=== PATIENT | male | born 2000 | race Caucasian/White ===

== ENCOUNTER 2024-03-14 22:22 | Emergency (ER) | payer OTHER ==
[2024-03-14] MEDS ORDERED: NA CHLORIDE 0.9% 1,000 ML ONE (23:24)
[2024-03-14] MEDS ORDERED: KETOROLAC 30 MG/ML INJ ONE (23:24)
[2024-03-14] MEDS ORDERED: ONDANSETRON 4 MG/2 ML VIAL ONE (23:24)
[2024-03-14] MEDS ORDERED: FAMOTIDINE 20 MG/2 ML VIAL IV ONE (23:24)
[2024-03-14 23:52] LABS: Absolute Eosinophils 0.1 K/uL (0-0.5); Absolute Lymphocytes (CBC) 1.4 K/uL (0.7-4.9); Absolute Monocytes 1.1 K/uL (0.1-1.3); Absolute Neutrophil 3.4 K/uL (1.8-8.0); Basophils % 0.3 % (0-1.3); Eosinophils % 0.9 % (0-4.4); Hematocrit 45.4 % (39.6-49.0); Hemoglobin 15.5 g/dL (13.6-17.9); Lymphocytes % 24.2 % (15.3-44.8); MCH 32.2 pg (27.0-35.0); MCHC 34.1 g/dL (32.0-36.0); MCV 94.3 fL (80-100); MPV 9.3 fL (7.6-11.3); Neutrophils % 56.6 % (41.7-73.7); Nucleated Red Blood Cells % 0.1 % (0-0); Platelets 142 thou/uL (152-406); RBC Red Blood Cell Count 4.82 M/uL (4.33-5.43); Red Cell Distribution Width 13.1 % (12.1-15.2)
[2024-03-15 00:10] LABS: Albumin 3.6 g/dL (3.4-5.0); Albumin/Globulin Ratio 0.9 (1.1-1.8); Anion Gap 9.6 mEq/L (5.0-15.0); Bilirubin Total 0.5 mg/dL (0.2-1.0); Globulin 4.1 g/dL (2.3-3.5); Potassium 3.6 mEq/L (3.5-5.1); Protein, Total 7.7 g/dL (6.4-8.2)
[2024-03-15 00:33] LABS: SARS-CoV-2 Antigen CONTROL BLUE LINE VIS/BG OK; SARS-CoV-2 Antigen Rapid Res Negative (Negative)
--- NOTE | 2024-03-15 00:38 | ER ---
Nurse's Notes [facility] Name: Chico Francois Age: 23 yrs Sex: Male : 2000 Arrival Date: 03/14/2024 Time: 22:22 Bed 8 Private MD: Diagnosis: Viral infection, unspecified Presentation: 03/14 22:52 Chief complaint: Patient states: N/V x4 days. Epigastric pain, N/D today. PT took kb3 Phenergan and Protonix from mom today \T\ 1520 and was able to keep toast down. Coronavirus screen: Vaccine status: Patient reports receiving the 2nd dose of the covid vaccine. Client denies travel out of the [place] in the last 14 days. Ebola Screen: Patient negative for fever greater than or equal to 101.5 degrees Fahrenheit, and additional compatible Ebola Virus Disease symptoms Patient denies exposure to infectious person. Patient denies travel to an Ebola-affected area in the 21 days before illness onset. Initial Sepsis Screen: Does the patient meet any 2 criteria? No. Patient's initial sepsis screen is negative. Does the patient have a suspected source of infection? No. Patient's initial sepsis screen is negative. Risk Assessment: Do you want to hurt yourself or someone else? Patient reports no desire to harm self or others. Onset of symptoms was March 10, 2024. 22:52 Method Of Arrival: Ambulatory 3 22:52 Acuity: RODNEY 3 kb3 Triage Assessment: 22:53 General: Appears in no apparent distress. Behavior is calm, cooperative. Pain: kb3 Complains of pain in epigastric area Pain radiates to xiphoid area and mid-sternal area Pain currently is 7 out of 10 on a pain scale. Quality of pain is described as burning, Pain began 1 day ago. Is continuous. GI: Reports upper abdominal pain, diarrhea, nausea, vomiting. Historical: - Allergies: 22:53 No Known Allergies; kb3 - Home Meds: 22:53 None [Active]; kb3 - PMHx: 22:53 None; kb3 - PSHx: 22:53 None; kb3 - Immunization history:: Adult Immunizations up to date, Client reports receiving the 2nd dose of the Covid vaccine, Last tetanus immunization: up to date. - Infectious Disease History:: Denies. - Social history:: Smoking status: Reported history of juuling and/or vaping. Screenin/11 00:49 [facility] ED Fall Risk Assessment (Adult) History of falling in the last 3 months, bm8 including since admission No falls in past 3 months (0 pts) Confusion or Disorientation No (0 pts) Intoxicated or Sedated No (0 pts) Impaired Gait No (0 pts) Mobility Assist Device Used No (0 pt) Altered Elimination No (0 pt) Score/Fall Risk Level 0 - 2 = Low Risk Oriented to surroundings, Maintained a safe environment, Educated pt \T\ family on fall prevention, incl call for assistance when getting out of bed, Assessed \T\ reinforced patient's understanding of fall precautions, Hourly rounding (assess needs \T\ fall precautionary measures) done, Used ambulatory aids as needed (educated on \T\ assisted with), Used gait belt as appropriate. Abuse screen: Denies threats or abuse. Nutritional screening: No deficits noted. Tuberculosis screening: No symptoms or risk factors identified. Assessment: 00:49 Reassessment: Patient appears in no apparent distress at this time. Patient and/or bm8 family updated on plan of care and expected duration. Pain level reassessed. Patient is alert, oriented x 3, equal unlabored respirations, skin warm/dry/pink. Patient states feeling better. Patient states symptoms have improved. Pain: Complains of pain in chest and abdomen Pain currently is 3 out of 10 on a pain scale. Quality of pain is described as burning. Neuro: Level of Consciousness is awake, alert, obeys commands, Oriented to person, place, time, situation, Appropriate for age. Cardiovascular: Reports chest pain, Capillary refill < 3 seconds Patient's skin is warm and dry. Respiratory: Airway is patent Respiratory effort is even, unlabored, Respiratory pattern is regular, symmetrical. GI: Abdomen is flat, non-distended, Bowel sounds present X 4 quads. Abd is soft and non tender Reports tolerance of fluids. : No signs and/or symptoms were reported regarding the genitourinary system. EENT: No signs and/or symptoms were reported regarding the EENT system. Derm: No signs and/or symptoms reported regarding the dermatologic system. Musculoskeletal: No signs and/or symptoms reported regarding the musculoskeletal system. Vital Signs: 03/14 22:52 BP 119 / 79; Pulse 85; Resp 18; Temp 99.6; Pulse Ox 99% ; Weight 70.76 kg; Height 5 ft. kb3 11 in. ; Pain 02/11; 03/15 00:49 BP 119 / 69; Pulse 79; Resp 18; Temp 99.5; Pulse Ox 100% ; Pain 3/10; bm8 03/14 22:52 Body Mass Index 21.76 (70.76 kg, 180.34 cm) kb3 03/14 22:52 Pain Scale: Adult kb3 03/15 00:49 Pain Scale: Adult bm8 Иван Coma Score: 00:49 Eye Response: spontaneous(4). Motor Response: obeys commands(6). Verbal Response: bm8 oriented(5). Total: 15. ED Course: 03/14 22:25 Patient arrived in ED. jj6 22:53 Triage completed. kb3 22:53 Arm band placed on right wrist. Patient placed in an exam room, on a stretcher. kb3 23:05 [facility]C [facility]. kb 23:05 Fam Bianchi MD is Attending Physician. kb 23:21 SARS-COV-2 Antigen Rapid Sent. me1 23:21 CBC with Diff Sent. me1 23:21 CMP Sent. me1 23:21 Lipase Sent. me1 23:21 Initial lab(s) drawn, by me, sent to lab. COVID swab sent to lab. Inserted saline lock: me1 22 gauge in right antecubital area, using aseptic technique. 23:44 Evens Pryor, RN is Primary Nurse. bm8 03/15 00:49 Patient has correct armband on for positive identification. Bed in low position. Call bm8 light in reach. Side rails up X 1. Adult w/ patient. Provided Education on: post er care. Client placed on continuous cardiac and pulse oximetry monitoring. NIBP monitoring applied. Pulse ox on. NIBP on. Door closed. Noise minimized. Warm blanket given. Verbal reassurance given. Head of bed elevated. 00:49 No provider procedures requiring assistance completed. IV discontinued, intact, bm8 bleeding controlled, No redness/swelling at site. Pressure dressing applied. Administered Medications: 03/14 23:31 Drug: NS 0.9% IV 1000 ml IV at 1 bolus Per protocol; 1000 mL bolus Route: IV; Rate: 1 me1 bolus; Site: right antecubital; 03/15 00:49 Follow up: Response: No adverse reaction; IV Status: Completed infusion; IV Intake: bm8 1000ml 03/14 23:31 Drug: Famotidine IVP 20 mg IVP once; dilute with 10 mL 0.9% NaCl; give over 2 minutes me1 Route: IVP; Site: right antecubital; 23:52 Follow up: Response: No adverse reaction bm8 23:31 Drug: TORadol - Ketorolac IVP 15 mg IVP once Route: IVP; Site: right antecubital; me1 23:52 Follow up: Response: No adverse reaction bm8 23:31 Drug: Ondansetron IVP 4 mg IVP once; over 2 minutes Route: IVP; Site: right antecubital;me1 23:52 Follow up: Response: No adverse reaction bm8 Medication: 03/15 00:49 VIS not applicable for this client. bm8 Intake: 00:49 IV: 1000ml; Total: 1000ml. bm8 Outcome: 00:37 Discharge ordered by . kb 00:49 Discharged to home ambulatory, with family, bm8 00:49 Condition: stable 00:49 Discharge instructions given to patient, Instructed on discharge instructions, follow up and referral plans. medication usage, safety practices, Demonstrated understanding of instructions, follow-up care, medications, Prescriptions given X 1, 00:53 Patient left the ED. bm8 Signatures: Naomi Jamil, SURGICAL SUPERVISOR-C SURGICAL SUPERVISOR-CkFadia Mast [id number] Letty Barcenas RN RN kb3 Myrtle Carlson RN RN me1 Evens Pryor RN RN bm8
--- NOTE | 2024-03-15 00:38 | EDPHYS ---
Physician Documentation [facility] Name: Chico Francois Age: 23 yrs Sex: Male : 2000 Arrival Date: 03/14/2024 Time: 22:22 Bed 8 Private MD: ED Physician Fam Bianchi HPI: 03/15 00:33 This 23 yrs old Male presents to ER via Ambulatory with complaints of Abdominal Pain, kb Nausea/Vomiting. 00:33 Pt is a 23 year old male who presents for nausea, vomiting, diarrhea, cough, congestion kb and sore throat that started 4 days ago. Denies fever. No aggravating or alleviating factors. States he did take phenergan today and was able to tolerate toast and fluids. . Historical: - Allergies: 03/14 22:53 No Known Allergies; kb3 - Home Meds: 22:53 None [Active]; kb3 - PMHx: 22:53 None; kb3 - PSHx: 22:53 None; kb3 - Immunization history:: Adult Immunizations up to date, Client reports receiving the 2nd dose of the Covid vaccine, Last tetanus immunization: up to date. - Infectious Disease History:: Denies. - Social history:: Smoking status: Reported history of juuling and/or vaping. ROS: 03/15 00:32 Constitutional: As per HPI kb Exam: 00:32 Constitutional: This is a well developed, well nourished patient who is awake, alert, kb and in no acute distress. Head/Face: Normocephalic, atraumatic. ENT: Moist Mucous membranes Cardiovascular: Regular rate Respiratory: Respirations even and unlabored. No increased work of breathing. Talking in full sentences Abdomen/GI: Soft, non-tender. No distention Skin: Warm, dry with normal turgor. Normal color. MS/ Extremity: Pulses equal, no cyanosis. Neurovascular intact. Full, normal range of motion. Neuro: Awake and alert, GCS 15, oriented to person, place, time, and situation. Moves all extremities. Normal gait. Vital Signs: 03/14 22:52 BP 119 / 79; Pulse 85; Resp 18; Temp 99.6; Pulse Ox 99% ; Weight 70.76 kg; Height 5 ft. kb3 11 in. ; Pain /; 03/15 00:49 BP 119 / 69; Pulse 79; Resp 18; Temp 99.5; Pulse Ox 100% ; Pain 3/10; bm8 03/14 22:52 Body Mass Index 21.76 (70.76 kg, 180.34 cm) kb3 03/14 22:52 Pain Scale: Adult kb3 03/15 00:49 Pain Scale: Adult bm8 Иван Coma Score: 00:49 Eye Response: spontaneous(4). Motor Response: obeys commands(6). Verbal Response: bm8 oriented(5). Total: 15. MDM: 03/14 23:05 Patient medically screened. kb 03/15 00:32 Differential diagnosis: viral infection, dehydration, abnormal electrolytes. Data kb reviewed: vital signs, nurses notes. Historians other than the Patient: Parent: mother. 00:37 Test considered but Not performed: CT: ct abd considered but pt has no abd kb pain/tenderness. Counseling: I had a detailed discussion with the patient and/or guardian regarding the historical points, exam findings, and any diagnostic results supporting the discharge/admit diagnosis, lab results, the need for outpatient follow up, a family practitioner, to return to the emergency department if symptoms worsen or persist or if there are any questions or concerns that arise at home. 03/14 23:05 Order name: CBC with Diff; Complete Time: 00:07 kb 03/14 23:05 Order name: CMP; Complete Time: 00:11 kb 03/14 23:05 Order name: Lipase; Complete Time: 00:11 kb 03/14 23:11 Order name: SARS-COV-2 Antigen Rapid; Complete Time: 00:34 bm8 03/14 23:05 Order name: IV Saline Lock; Complete Time: 23:21 kb 03/14 23:05 Order name: Labs collected and sent; Complete Time: 23:21 kb 03/15 00:35 Order name: PO challenge; Complete Time: 00:49 kb Administered Medications: 03/14 23:31 Drug: NS 0.9% IV 1000 ml IV at 1 bolus Per protocol; 1000 mL bolus Route: IV; Rate: 1 me1 bolus; Site: right antecubital; 03/15 00:49 Follow up: Response: No adverse reaction; IV Status: Completed infusion; IV Intake: bm8 1000ml 03/14 23:31 Drug: Famotidine IVP 20 mg IVP once; dilute with 10 mL 0.9% NaCl; give over 2 minutes me1 Route: IVP; Site: right antecubital; 23:52 Follow up: Response: No adverse reaction bm8 23:31 Drug: TORadol - Ketorolac IVP 15 mg IVP once Route: IVP; Site: right antecubital; me1 23:52 Follow up: Response: No adverse reaction bm8 23:31 Drug: Ondansetron IVP 4 mg IVP once; over 2 minutes Route: IVP; Site: right antecubital;me1 23:52 Follow up: Response: No adverse reaction bm8 Disposition Summary: 03/15/24 00:37 Discharge Ordered Notes: Location: Home kb Condition: Stable kb Diagnosis - Viral infection, unspecified kb Followup: kb - With: Emergency Department - When: As needed - Reason: Worsening of condition Followup: kb - With: Private Physician - When: 2 - 3 days - Reason: Recheck today's complaints, Continuance of care, Re-evaluation by your physician Discharge Instructions: - Discharge Summary Sheet kb - Viral Gastroenteritis, Adult, [id number] kb - Viral Illness, Adult kb Forms: - Medication Reconciliation Form kb - Antibiotic Education kb - Prescription Opioid Use kb - Patient Portal Instructions kb - Leadership Thank You Letter kb Prescriptions: - Zofran 4 mg Oral tablet - take 1 tablet ORAL route every 6 hours As needed; 12 tablet; Refills: 0, kb Product Selection Permitted Signatures: Dispatcher [employer] Naomi Florian FNP-C FNP-Letty Christianesn RN RN kb3 Myrtle Carlson RN RN me1 Evens Pryor RN bm8
[2024-03-15 02:03] VITALS: BP 119/69; TEMP 99.5; O2SAT 100
== END 2024-03-15 00:53 | disposition home or self-care (01) ==
LOC: ER 22:22
DX: B34.9 Viral infection, unspecified (principal); Z11.52 Encounter for screening for COVID-19
CPT/HCPCS: 96361; 85025; 36415; 83690; 80053; 96375; 96374; 99284; 87811; J2405; J7030